=== PATIENT | female | born 1985 | race Caucasian/White ===

== ENCOUNTER 2016-07-07 22:02 | Emergency (ER) | payer BC ==
[~2016-07-07] VITALS: Ht 157.5 cm; Wt 70.5 kg
[~2016-07-07 22:02] MED LIST: ENDOCET 5-3251 EACH PO; MOTRIN800 MG PO; Motrin PO; Percocet 5/325,Endoc PO
[2016-07-07 22:33] LABS: HEMATOCRIT 39.2 % (36.0-46.0); MCH 29.4 PG (29.0-34.0); MCHC 32.1 G/DL (30.0-36.0); MCV 91.6 FL (83-99); MEAN PLAT.VOLUME 9.5 uM^3 (9.5-12.4); PLATELET COUNT 354 K/uL (156-360); RBC DIS.WIDTH-CV 12.7 % (11.8-14.6); RBC DIS.WIDTH-SD 42.5 % (39-53); RED BLOOD COUNT 4.28 M/uL (3.80-5.20); WHITE BLOOD COUNT 11.4 K/uL (4.1-10.2)
[2016-07-07 22:41] LABS: CHLORIDE 101 mEq/L (99-109); POTASSIUM 3.5 mEq/L (3.7-5.4); SODIUM 138 mEq/L (136-147)
[2016-07-07 22:43] LABS: GLUCOSE 97 mg/dL (70-99)
[2016-07-07 22:45] LABS: ANION GAP 13 MEQ/L (2-14); D-DIMER ELISA 0.28 mg/L FEU (< 0.57)
[2016-07-07 22:47] LABS: GFR ESTIMATE (CALCULATED) > 59 mL/min/
[2016-07-07 22:48] LABS: UREA NITROGEN (BUN) 14 mg/dL (9-23)
[2016-07-07 22:54] LABS: TROP-I INTERPRETATION NEGATIVE; TROPONIN-I < 0.01 ng/mL (0.0-0.30)
[2016-07-08 01:05] LABS: TROP-I INTERPRETATION NEGATIVE; TROPONIN-I 0.03 ng/mL (0.0-0.30)
[2016-07-08 01:29] VITALS: BP 104/72
== END 2016-07-08 01:30 | disposition home or self-care (01) ==
LOC: EME 22:02
PROVIDERS: Emergency Medicine
DX: R00.2 Palpitations (principal); I48.91 Unspecified atrial fibrillation
CPT/HCPCS: 71020; 80048; 84484; 84702; 85027; 85379; 93005; 99281; 99284